=== PATIENT | male | born 1960 | race Caucasian/White ===

== ENCOUNTER 2016-11-13 09:07 | Emergency (ER) | payer OTHER ==
[2016-11-13 10:38] VITALS: BP 124/81
--- NOTE | 2016-11-13 11:41 | UC ---
Laceration HPI - HPI Summary HPI Summary: AT WORK THIS MORNING ABOUT 8:30AM. STRUCK IN THE FACE BY A FILTER WITH A PLASTIC FILTER FRAME. SUSTAINED A LACERATION TO RIGHT SIDE OF NOSE. UTD TETANUS (06/2015). - History Of Current Complaint Chief Complaint: UCLaceration Stated Complaint: NOSE INJURY Time Seen by Provider: 11/13/16 11:20 Hx Obtained From: Patient Laceration Location: Face - NOSE Mechanism Of Injury: Sharp Trauma Onset/Duration: Sudden Onset, Lasting Hours, Still Present Severity: Mild Pain Intensity: 3 Pain Scale Used: 0-10 Numeric Aggravating Factors: Nothing - Allergies/Home Medications Allergies/Adverse Reactions: Allergies Allergy/AdvReac Type Severity Reaction Status Date / Time Atorvastatin [From Lipitor] Allergy Intermediate Muscle Ache Verified 08/29/15 11:30 Niacin [From Niaspan] Allergy Intermediate Muscle Ache Verified 08/29/15 11:30 Rosuvastatin [From Crestor] Allergy BODY CRAMPS Verified 08/29/15 11:30 Home Medications: Home Medications Bupropion HCl [Bupropion HCl Xl] 300 mg PO DAILY 11/13/16 [History Confirmed ] Lisinopril/HCTZ 20/12.5(NF) [Zestoretic 20/12.5(NF)] 1 tab PO DAILY 11/13/16 [ History Confirmed 11/13/16] Pravastatin Sodium [Pravachol] 1 tab PO DAILY 11/13/16 [History Confirmed ] glipiZIDE TAB* [Glucotrol TAB*] 1 tab PO DAILY 11/13/16 [History Confirmed 11/13] PMH/Surg Hx/FS Hx/Imm Hx Endocrine History Of: Reports: Diabetes, Thyroid Disease - HYPO, Hypothyroidism Cardiovascular History Of: Reports: Hypertension Denies: Cardiac Disorders Respiratory History Of: Denies: COPD, Asthma GI/ History Of: Reports: Kidney Stones - X1 - 5-6 YRS AGO Denies: Ulcer Neurological History Of: Reports: Migraine - RECENTLY Psychological History Of: Reports: Anxiety - ON MEDS - Surgical History Surgical History: Yes Surgery Procedure, Year, and Place: acl right knee 2002, nasal surgery 2010. LEFT LEG. L THUMB/TENDON SURGERY. R hand - Family History Known Family History: Positive: Hypertension, Diabetes - Social History Alcohol Use: Rare Alcohol Amount: 1 Q 6 MONTHS Substance Use Type: None Smoking Status (MU): Never Smoked Tobacco Type: Cigars Amount Used/How Often: 2 CIGARS A DAY Length of Time of Smoking/Using Tobacco: 25 YEARS AGO Have You Smoked in the Last Year: No When Did the Patient Quit Smoking/Using Tobacco: 20 YRS AGO - Immunization History Most Recent Influenza Vaccination: season Most Recent Tetanus Shot: Friday July 03, 2015 Review of Systems Constitutional: Negative Skin: Other - LACERATION Respiratory: Negative Cardiovascular: Negative Gastrointestinal: Negative All Other Systems Reviewed And Are Negative: Yes Physical Exam Triage Information Reviewed: Yes Appearance: Well-Appearing, No Pain Distress, Well-Nourished Vital Signs: Initial Vital Signs Temp 97.8 F 11/13/16 10:32 Pulse 59 11/13/16 10:32 Resp 18 11/13/16 10:32 BP 124/81 11/13/16 10:32 Pulse Ox 98 11/13/16 10:32 Vital Signs Reviewed: Yes Eyes: Positive: Conjunctiva Clear ENT: Positive: Hearing grossly normal, Other: - LACERATION RIGHT SIDE OF NOSE. NO TENDERNESS OVER BRIDGE OF NOSE. NO SEPTAL HEMATOMA.. Negative: Nasal congestion, Nasal drainage Neck: Positive: Supple Respiratory: Positive: No respiratory distress, No accessory muscle use Cardiovascular: Positive: Pulses Normal Abdomen Description: Positive: Soft Musculoskeletal: Positive: No Edema Neurological: Positive: Alert Psychological: Positive: Age Appropriate Behavior Skin: Positive: Other - 1CM CURVED LACERATION EXTERNAL RIGHT NOSTRIL. NO INVOLVEMENT OF NASAL MUCOSA. SKIN EDGES WELL APPROXIMATED. Negative: rashes Laceration Repair - Laceration Repair 1 Description: Irregular - C-SHAPED Laceration Size After Repair: Length (cm) - 1 CM, Width (mm) - 0MM, Depth (mm) - 2MM Modified For Repair: No Cleansing Completed Via Routine Prep: Yes Irrigation With Pressure Irrigation Device: Yes Closure Material: Skin Adhesive Laceration Course/Dx - Differential Dx - Laceration/Wound Provider Diagnoses: LACERATION REPAIR RIGHT NOSTRIL Discharge - Discharge Plan Condition: Stable Disposition: HOME Patient Education Materials: Laceration (ED), Skin Adhesive Care (ED) Referrals: Ruiz Almazan MD [Primary Care Provider] - If Needed Additional Instructions: SEEK FOLLOW-UP IF YOU DEVELOP SPREADING REDNESS OF THE SKIN, PURULENT DRAINAGE, FEVER, INCREASED PAIN OR ANY OTHER CONCERNING SYMPTOMS.
== END 2016-11-13 12:09 | disposition home or self-care (01) ==
LOC: UCEAST 09:07
DX: S01.21XA Laceration without foreign body of nose, initial encounter (principal); W22.8XXA Striking against or struck by other objects, initial encounter; Y93.89 Activity, other specified; Y92.89 Other specified places as the place of occurrence of the external cause; Y99.0 Civilian activity done for income or pay; E03.9 Hypothyroidism, unspecified; I10 Essential (primary) hypertension; Z87.442 Personal history of urinary calculi; G43.909 Migraine, unspecified, not intractable, without status migrainosus; F41.9 Anxiety disorder, unspecified; Z88.8 Allergy status to other drugs, medicaments and biological substances; Z87.891 Personal history of nicotine dependence
CPT/HCPCS: 12011; 99211; G0463

== ENCOUNTER 2016-12-02 15:11 | Observation (INO) | payer OTHER ==
[2016-12-02] MEDS ORDERED: NS 0.9% 1000 ML* 1,000 ML IV ONE (16:55)
[2016-12-02] MEDS ORDERED: Aspirin Low Dose CHEW TAB* 81 MG PO ONE (16:55)
--- NOTE | 2016-12-02 17:35 | RAD ---
Indication: Chest pain. 2 views of the chest including dual energy PA views demonstrate no mediastinal shift. Heart is of normal size and configuration. Lung alarcon demonstrate no pleural fluid, pneumonia or pneumothorax. No changes noted since previous exam of August 29, 2015. IMPRESSION: No active cardiopulmonary disease is noted.
[2016-12-02 17:57] LABS: Hematocrit 40 % (42-52); Hemoglobin 14.2 g/dl (14.0-18.0); Mean Corpuscular HGB Conc 36 g/dl (31-36); Mean Corpuscular Hemoglobin 32 pg (27-31); Mean Corpuscular Volume 89 fL (80-94); Mean Platelet Volume 8 um3 (7.4-10.4); Red Blood Count 4.45 10^6/ul (4.0-5.4); Red Cell Distribution Width 13 % (10.5-15); White Blood Count 5.9 10^3/ul (3.5-10.8)
[2016-12-02 18:14] LABS: Albumin 4.3 g/dL (3.2-5.2); BUN/Creatinine Ratio 16.2 (8-20); Calcium 9.4 mg/dL (8.6-10.3); EGFR African American 93.3 (>60); EGFR Non-African American 72.5 (>60); Globulin 2.4 g/dL (2-4); Total Bilirubin 0.3 mg/dL (0.2-1.0); Total Protein 6.7 g/dL (6.4-8.9)
[2016-12-02 18:47] LABS: Magnesium 1.9 mg/dL (1.9-2.7); Potassium 3.9 mmol/L (3.5-5.0)
[2016-12-02] MEDS ORDERED: Ondansetron INJ* 2 MG/ML VIAL IV PRN (20:44)
[2016-12-02] MEDS ORDERED: Acetaminophen TAB* 325 MG PO PRN (20:44)
[2016-12-02] MEDS ORDERED: Dextrose 50% Syringe 50 ML* 25 GM/50 ML SYRINGE IV PUSH PRN (20:47)
[2016-12-02] MEDS ORDERED: traZODone TAB* 50 MG TAB PO SCH (21:00)
--- NOTE | 2016-12-02 22:26 | ED ---
Yonny Leblanc Michael, scribed for JerubjavadiEve MD on 12/02/16 at 1659 . Upper Extremity Pain - HPI Summary HPI Summary: 56 y/o male comes to the ED presenting with sharp arm pain that started at 0500 this morning. The pt reports that the extremity pain occurs intermittently and has not radiated down his LUE. He also c/o left side chest pressure that has alleviated since arriving to the ED. The chest pressure and LUE pain is not aggravated with exertion. He denies SOB, diaphoresis, and acute bilateral LE swelling. The PMHx is significant for HTN, DM, and hypothyroidism. He had a stress test one year ago. The FHx is significant for CVA and CAD. - History of Current Complaint Chief Complaint: EDChestPainROMI Stated Complaint: PAIN IN LT ARM Time Seen by Provider: 12/02/16 16:42 Hx Obtained From: Patient, Medical Records Mechanism Of Injury: Unknown Onset/Duration: Started Hours Ago, Still Present Timing: Intermittent Severity Initially: Moderate Severity Currently: Moderate Pain Location: Arm - LUE Character: Sharp Aggravating Factor(s): Nothing Alleviating Factor(s): Nothing Associated Signs & Symptoms: Positive: Other - CP. LUE pain.. Negative: Swelling - bilateral LE and bilateral LE pain, SOB, Diaphoresis - Allergies/Home Medications Allergies/Adverse Reactions: Allergies Allergy/AdvReac Type Severity Reaction Status Date / Time Atorvastatin [From Lipitor] Allergy Intermediate Muscle Ache Verified 08/29/15 11:30 Niacin [From Niaspan] Allergy Intermediate Muscle Ache Verified 08/29/15 11:30 Rosuvastatin [From Crestor] Allergy BODY CRAMPS Verified 08/29/15 11:30 PMH/Surg Hx/FS Hx/Imm Hx Endocrine/Hematology History: Reports: Hx Diabetes, Hx Thyroid Disease - HYPO Cardiovascular History: Reports: Hx Hypertension Denies: Hx Valvular Heart Disease Comment Only: Other Cardiovascular Problems/Disorders - NEG STRESS TEST Respiratory History: Denies: Hx Asthma, Hx Chronic Obstructive Pulmonary Disease (COPD), Other Respiratory Problems/Disorders GI History: Denies: Hx Ulcer History: Reports: Hx Kidney Stones - X1 - 5-6 YRS AGO Musculoskeletal History: Reports: Hx Arthritis - SPINAL, Hx Tendonitis - RIGHT ELBOW Sensory History: Reports: Hx Contacts or Glasses - GLASSES Denies: Hx Hearing Aid Opthamlomology History: Reports: Hx Contacts or Glasses - GLASSES Neurological History: Reports: Hx Migraine - RECENTLY Denies: Other Neuro Impairments/Disorders Psychiatric History: Reports: Hx Anxiety - ON MEDS - Surgical History Surgery Procedure, Year, and Place: acl right knee 2002, nasal surgery 2010. LEFT LEG. L THUMB/TENDON SURGERY. R hand Hx Anesthesia Reactions: No Infectious Disease History: No Infectious Disease History: Reports: Hx Hepatitis - VIRAL Denies: Hx Clostridium Difficile, Hx Human Immunodeficiency Virus (HIV), Hx of Known/Suspected MRSA, Hx Shingles, Hx Tuberculosis, Hx Known/Suspected VRE, Hx Known/Suspected VRSA, History Other Infectious Disease, Traveled Outside the [place] in Last 30 Days - Family History Known Family History: Positive: Hypertension, Diabetes - Social History Alcohol Use: Rare Alcohol Amount: 1 Q 6 MONTHS Substance Use Type: Reports: None Hx Tobacco Use: No Smoking Status (MU): Never Smoked Tobacco Type: Cigars Amount Used/How Often: 2 CIGARS A DAY Length of Time of Smoking/Using Tobacco: 25 YEARS AGO Have You Smoked in the Last Year: No Review of Systems Negative: Skin Diaphoresis Positive: Chest Pain Negative: Shortness Of Breath Positive: Other - LUE pain. no bilateral LE pain/swelling. All Other Systems Reviewed And Are Negative: Yes Physical Exam Triage Information Reviewed: Yes Vital Signs On Initial Exam: Initial Vitals Temp Pulse Resp BP Pulse Ox 97.9 F 70 20 137/87 99 12/02/16 15:22 12/02/16 15:22 12/02/16 15:22 12/02/16 15:22 12/02/16 15:22 Vital Signs Reviewed: Yes Appearance: Positive: Well-Appearing, No Pain Distress Skin: Positive: Warm, Skin Color Reflects Adequate Perfusion, Dry Head/Face: Positive: Normal Head/Face Inspection Eyes: Positive: EOMI, CK, Conjunctiva Clear ENT: Positive: Hearing grossly normal, TMs normal Neck: Positive: Supple, Nontender Respiratory/Lung Sounds: Positive: Clear to Auscultation, Breath Sounds Present. Negative: Rales, Rhonchi, Wheezes Cardiovascular: Positive: RRR, Pulses are Symmetrical in both Upper and Lower Extremities. Negative: Murmur, Rub Abdomen Description: Positive: Nontender, No Organomegaly, Soft. Negative: Distended, Guarding, Peritoneal Signs Bowel Sounds: Positive: Present Musculoskeletal: Positive: Strength/ROM Intact Neurological: Positive: Sensory/Motor Intact, Alert, Oriented to Person Place, Time, Normal Gait. Negative: Cerebellar Dysfunction Psychiatric: Positive: Affect/Mood Appropriate Diagnostics - Vital Signs Vital Signs Temp Pulse Resp BP Pulse Ox 12/02/16 15:25 98.0 F 68 20 137/87 100 12/02/16 15:22 97.9 F 70 20 137/87 99 - Laboratory Lab Results: Lab Results 12/02/16 12/02/16 12/02/16 Range/Units 17:45 17:45 17:45 WBC 5.9 (3.5-10.8) 10^3/ul RBC 4.45 (4.0-5.4) 10^6/ul Hgb 14.2 (14.0-18.0) g/dl Hct 40 L (42-52) % MCV 89 (80-94) fL MCH 32 H (27-31) pg MCHC 36 (31-36) g/dl RDW 13 (10.5-15) % Plt Count 196 (150-450) 10^3/ul MPV 8 (7.4-10.4) um3 Neut % (Auto) 61.8 (38-83) % Lymph % (Auto) 26.6 (25-47) % [place] % (Auto) 9.1 H (1-9) % Eos % (Auto) 1.6 (0-6) % Baso % (Auto) 0.9 (0-2) % Absolute Neuts (auto) 3.7 (1.5-7.7) 10^3/ul Absolute Lymphs (auto) 1.6 (1.0-4.8) 10^3/ul Absolute Monos (auto) 0.5 (0-0.8) 10^3/ul Absolute Eos (auto) 0.1 (0-0.6) 10^3/ul Absolute Basos (auto) 0.1 (0-0.2) 10^3/ul Absolute Nucleated RBC 0 10^3/ul Nucleated RBC % 0.1 INR (Anticoag Therapy) (0.89-1.11) Sodium 134 (133-145) mmol/L Potassium 3.9 (3.5-5.0) mmol/L Chloride 99 L (101-111) mmol/L Carbon Dioxide 28 (22-32) mmol/L Anion Gap 7 (2-11) mmol/L BUN 17 (6-24) mg/dL Creatinine 1.05 (0.67-1.17) mg/dL Est GFR ( Amer) 93.3 (>60) Est GFR (Non-Af Amer) 72.5 (>60) BUN/Creatinine Ratio 16.2 (8-20) Glucose 161 H (70-100) mg/dL Lactic Acid 0.8 (0.5-2.0) mmol/L Calcium 9.4 (8.6-10.3) mg/dL Magnesium 1.9 (1.9-2.7) mg/dL Total Bilirubin 0.30 (0.2-1.0) mg/dL AST 20 (13-39) U/L ALT 22 (7-52) U/L Alkaline Phosphatase 48 (34-104) U/L Total Creatine Kinase 131 (10-223) U/L CK-MB (CK-2) 2.1 (0.6-6.3) ng/mL Troponin I 0.00 (<0.04) ng/mL Total Protein 6.7 (6.4-8.9) g/dL Albumin 4.3 (3.2-5.2) g/dL Globulin 2.4 (2-4) g/dL Albumin/Globulin Ratio 1.8 (1-3) // Range/Units 17:45 WBC (3.5-10.8) 10^3/ul RBC (4.0-5.4) 10^6/ul Hgb (14.0-18.0) g/dl Hct (42-52) % MCV (80-94) fL MCH (27-31) pg MCHC (31-36) g/dl RDW (10.5-15) % Plt Count (150-450) 10^3/ul MPV (7.4-10.4) um3 Neut % (Auto) (38-83) % Lymph % (Auto) (25-47) % [place] % (Auto) (1-9) % Eos % (Auto) (0-6) % Baso % (Auto) (0-2) % Absolute Neuts (auto) (1.5-7.7) 10^3/ul Absolute Lymphs (auto) (1.0-4.8) 10^3/ul Absolute Monos (auto) (0-0.8) 10^3/ul Absolute Eos (auto) (0-0.6) 10^3/ul Absolute Basos (auto) (0-0.2) 10^3/ul Absolute Nucleated RBC 10^3/ul Nucleated RBC % INR (Anticoag Therapy) 0.86 L (0.89-1.11) Sodium (133-145) mmol/L Potassium (3.5-5.0) mmol/L Chloride (101-111) mmol/L Carbon Dioxide (22-32) mmol/L Anion Gap (2-11) mmol/L BUN (6-24) mg/dL Creatinine (0.67-1.17) mg/dL Est GFR ( Amer) (>60) Est GFR (Non-Af Amer) (>60) BUN/Creatinine Ratio (8-20) Glucose (70-100) mg/dL Lactic Acid (0.5-2.0) mmol/L Calcium (8.6-10.3) mg/dL Magnesium (1.9-2.7) mg/dL Total Bilirubin (0.2-1.0) mg/dL AST (13-39) U/L ALT (7-52) U/L Alkaline Phosphatase (34-104) U/L Total Creatine Kinase (10-223) U/L CK-MB (CK-2) (0.6-6.3) ng/mL Troponin I (<0.04) ng/mL Total Protein (6.4-8.9) g/dL Albumin (3.2-5.2) g/dL Globulin (2-4) g/dL Albumin/Globulin Ratio (1-3) Result Diagrams: 12/02/16 17:45 12/02/16 17:45 Lab Statement: Any lab studies that have been ordered have been reviewed, and results considered in the medical decision making process. - Radiology CXR Xray Interpretation: No Acute Changes Radiology Interpretation Completed By: Radiologist - EKG EKG 1533 EKG Rhythm: Sinus Rhythm - 61 EKG Interpretation: non specific Twave changes AVF and T wave inversion lead 3 Course/Dx - Course Course Of Treatment: Discussed patient care with Dr. Palomo (Hospitalist) at 2009 who will accept the patient as and admission. - Diagnoses Provider Diagnoses: Chest pain Discharge - Discharge Plan Condition: Stable Disposition: ADMITTED TO [facility] Discharge Disposition Comment: patient is accepted as an admission by Dr. Palomo The documentation as recorded by the radhaibYonny matthew Michael accurately reflects the service I personally performed and the decisions made by , Eve Rod MD.
[2016-12-02] MEDS: Heparin VIAL(*) 5000 UNITS/ML VIAL (FIVE THOUSAND) SUBCUT SCH (22:36)
--- NOTE | 2016-12-02 22:50 | HP ---
HISTORY AND PHYSICAL: DATE OF ADMISSION: 12/02/16 PRIMARY CARE PROVIDER: Dr. Almazan. ATTENDING PHYSICIAN WHILE IN THE HOSPITAL: Kole Palomo MD *(report dictated by Cora Jones NP). CHIEF COMPLAINT: 1. Left arm pain. 2. Chest pain. HISTORY OF PRESENTING ILLNESS: Mr. Resendez is a 56-year-old male patient who carries a history of hypertension, hyperlipidemia, hypothyroidism, depression and diabetes. He comes into the ER today stating that this morning he noticed that he was having episodes of sharp episodic pain in the left arm, described as a sharp stabbing pain. It did not radiate down the arm, did not come from the neck or shoulder area. He says the pain would come and go and there was no association with exertion. He had no associated symptoms of shortness of breath and nausea. He did not feel like he was having chills. He states the pain lasted seconds and he would have 14 to 15 episodes at a time in the left arm. He was concerned because his family members have significant medical history for heart attack, particularly his brother at young ages. He says that while he was in the waiting room here today, he did have an episode of chest discomfort and chest pain, but again no heaviness and it lasted for seconds, went away. He has not had any exertional chest pain to speak of. He denies having any chills. He denies having any fevers. He states he has not been having any nausea or vomiting, denies having any shortness of breath. He says he came in, he was evaluated. He says he was symptom free now, but there was concern on the ER's part that because of his medical history, his risk factors, we were asked to evaluate for admission. He denies any recent illness, denies having any leg pain, calf pain or any tenderness or swelling of the lower extremities. PAST MEDICAL HISTORY: Significant for: 1. Hypertension. 2. Hyperlipidemia. 3. Hypothyroidism. 4. Depression. 5. Diabetes. PAST SURGICAL HISTORY: 1. He has had right knee surgery ACL repair. 2. Carpal tunnel. 3. Deviated septum repair. 4. ORIF left lower extremity. 5. Left thumb repair. HOME MEDICATIONS: According to the list that he gave does include: 1. Trazodone 50 mg p.o. at bedtime. 2. Glipizide 1 tablet at bedtime. 3. Zoloft 50 mg daily. 4. Pravachol 1 tablet daily. 5. Lisinopril/hydrochlorothiazide 1 tablet p.o. daily. 6. Synthroid 75 mcg daily. 7. Bupropion 300 mg p.o. daily. 8. Aspirin 81 mg daily. ALLERGIES TO MEDICATIONS: Include LIPITOR, NIACIN, CRESTOR. FAMILY HISTORY: His mother had a history of CVA. Father had a history of ID __ ____ but he had 2 brothers with heart attacks at young ages. SOCIAL HISTORY: He does not smoke. He does not drink; if he does, it is very rarely. Lives with his . Surrogate decision maker is his . REVIEW OF SYSTEMS: There is no documented fever. He denied having any significant weight change. There was no double vision, no ear discharge. He denies having any rhinorrhea. No sore throat. No thyroid enlargement. There was chest pain per my HPI. There was no shortness of breath, no orthopnea, no nocturnal dyspnea. There was no abdominal pain, no nausea, no vomiting. No dysuria, no frequency. No seizure, no loss of consciousness, no pruritus, and no skin ulcerations. Review of 14 systems including all others negative. PHYSICAL EXAMINATION GENERAL: At this time, Mr. Resendez is a 56-year-old male patient. He appears to be well nourished, well developed. He is sitting in the ER stretcher. VITAL SIGNS: Blood pressure 138/75, pulse 66, respirations 18, O2 sat 95%, temperature 98.3. HEENT: Head is atraumatic and normocephalic. Eyes: EOMs are intact. Sclerae anicteric and not pale. Throat: Oral mucosa appears to be moist. No oropharyngeal erythema. NECK: Supple. LUNGS: Clear to auscultation bilaterally. No wheezes, rales or rhonchi. HEART: Heart sounds S1, S2. Regular rate and rhythm. No murmurs, rubs or gallops. ABDOMEN: Soft, flat, nontender. Bowel sounds present. EXTREMITIES: Pulses were 2+ throughout. He is able to move all 4 extremities. 5/5 strength. No peripheral edema. NEUROLOGIC: The patient is awake, he is alert. He is oriented x3. Tongue is midline. Compressed Gases Tester are equal. He had no gross focal deficits. SKIN: Grossly intact. DIAGNOSTIC STUDIES/LAB DATA: Labs today revealed WBC of 5.9, RBC of 4.45, hemoglobin of 14.2, hematocrit of 40, and platelet count of 196. INR 0.86. Sodium was 134, potassium was 3.9, chloride 99, bicarb 28, BUN 17, creatinine 1.05, glucose 161, lactate 0.8, calcium 9.4, magnesium 1.9, total bilirubin 0.3. AST 20, ALT 22, alk phos 48, CK 131, CK-MB 2.1. Troponin 0. Albumin of 4.3. He had a chest x-ray, showed no active cardiopulmonary disease. EKG shows a normal sinus rhythm, rate of 61, no ST elevations or T-wave inversions were noted. Old medical records were reviewed. ASSESSMENT AND PLAN: Mr. Resendez is a 56-year-old male patient coming into the ER today with complaints of chest discomfort and arm pain. He will be admitted under observation status for: 1. Chest pain and arm pain. Again, symptoms are atypical for acute coronary syndrome, although he has significant risk factors, so I think it is warranted to keep him overnight for serial troponins, check stress test in the morning. I placed him on telemetry. He is already on aspirin and statin, continue. Should the stress test be positive or troponins go up, we will get a cardiology consult. 2. Hypertension. Continue meds as prescribed. 3. Hyperlipidemia. Check lipid panel in the morning and we will go ahead and continue statin. 4. Hypothyroidism. Continue Synthroid. 5. Depression. Continue supportive care. 6. Diabetes. Continue with lispro sliding scale. 7. DVT prophylaxis. He will be placed on heparin subcu. 8. Code status. Full code. 9. Fluid, electrolytes, and nutrition. He can have a heart healthy diet and n.p.o. after midnight. TIME SPENT: Time spent on this admission was 60 minutes, greater than half that time was spent [id number] with the patient, obtaining my history of physical; the other half time was spent going over the plan of care with the patient and implementing plan of care. I did discuss the plan of care with my attending, Dr. Palomo; he is in agreement. CORA JONES NP CC: Dr. Almazan * [id number]/[facility] #: [id number] AMANDEEP
[2016-12-03 05:48] LABS: Hematocrit 39 % (42-52); Hemoglobin 13.5 g/dl (14.0-18.0); Mean Corpuscular HGB Conc 35 g/dl (31-36); Mean Corpuscular Hemoglobin 31 pg (27-31); Mean Corpuscular Volume 89 fL (80-94); Mean Platelet Volume 8 um3 (7.4-10.4); Red Blood Count 4.36 10^6/ul (4.0-5.4); Red Cell Distribution Width 13 % (10.5-15); White Blood Count 5.5 10^3/ul (3.5-10.8)
[2016-12-03 05:59] LABS: BUN/Creatinine Ratio 13.7 (8-20); Calcium 8.3 mg/dL (8.6-10.3); EGFR African American 96.5 (>60); HDL Cholesterol 39.2 mg/dL; Potassium 3.9 mmol/L (3.5-5.0)
[2016-12-03] MEDS ORDERED: Levothyroxine TAB* 75 MCG TAB PO SCH (06:00)
[2016-12-03] MEDS: Heparin VIAL(*) 5000 UNITS/ML VIAL (FIVE THOUSAND) SUBCUT SCH (06:08)
[2016-12-03] MEDS ORDERED: Insulin LISPRO* 1 UNITS UNIT SUBCUT SCH (07:30)
[2016-12-03] MEDS ORDERED: BuPROPion XL* 150 MG TAB.XL PO SCH (09:00)
[2016-12-03] MEDS ORDERED: Aspirin Low Dose CHEW TAB* 81 MG PO SCH (09:00)
[2016-12-03] MEDS ORDERED: Hydrochlorothiazide TAB* 25 MG PO SCH (09:00)
[2016-12-03] MEDS ORDERED: Lisinopril TAB* 10 MG PO SCH (09:00)
[2016-12-03] MEDS ORDERED: Sertraline* 50 MG TAB PO SCH (09:00)
[2016-12-03] MEDS ORDERED: Aspirin EC Low Dose* 81 MG TAB.EC PO SCH (09:00)
[2016-12-03] MEDS ORDERED: CMCS Pravastatin (NF) 20 MG TAB PO SCH (09:00)
--- NOTE | 2016-12-03 11:16 | RAD ---
Edited for charges. INDICATION: Chest pain, multiple risk factors for coronary artery disease including diabetes, hypertension, elevated cholesterol, tobacco use, family history of heart disease. COMPARISON: No relevant prior exams available on the [facility] [place] for comparison. TECHNIQUE: 10.330 mCi of Tc-99m Myoview were administered IV. SPECT images of the heart were obtained. Later on the same day under the direction of Dr. Ochoa, an exercise stress test was performed. The patient achieved a peak heart rate of 145 bpm, 90 % of the age- predicted maximum. Subsequently, the patient was given an IV injection of 25.600 mCi Tc- 99m Myoview. SPECT images of the heart were obtained and a gated wall motion study was performed. FINDINGS: Gated wall motion images were obtained at stress and demonstrate wall motion to be within normal limits. The calculated left ventricular ejection fraction is 57 % at stress. Estimated LEFT ventricular end diastolic volume is 85 mL. TID 0.88. Based on review of the attenuation corrected and non corrected images the distribution of radiopharmaceutical within the myocardium on the stress and rest images is within normal limits. No fixed or reversible regions of hypoperfusion evident. IMPRESSION: 1. No evidence for stress induced myocardial ischemia or presence of an infarct. 2. Normal left ventricular wall motion and ejection fraction. ASSESSMENT: LOW RISK. Based on imaging criteria from ACC/AHA 2002 Guideline Update for the Management of Patients With Chronic Stable Angina Table 23. Noninvasive Risk Stratification. MTDD
--- NOTE | 2016-12-03 12:14 | DCNOTE ---
Subjective Date of Service: 12/03/16 Interval History: Still has 10-15 second episodes of L upper arm pain, no radiation to shoulder or elsewhere. No new c/o. Objective Active Medications: Acetaminophen (Tylenol Tab*) 650 mg PO Q4H PRN PRN Reason: FEVER/PAIN Aspirin (Aspirin Ec Low Dose*) 81 mg PO DAILY [facility] Last Admin: 12/03/16 11:40 Dose: 81 mg Bupropion HCl (Wellbutrin Xl *) 300 mg PO DAILY [facility] PRN Reason: Protocol Last Admin: 12/03/16 11:40 Dose: 300 mg Dextrose (D50w Syringe 50 Ml*) 12.5 gm IV PUSH .FOR FS < 60 - SS PRN PRN Reason: FS < 60 Heparin Sodium (Porcine) (Heparin Vial(*)) 5,000 units SUBCUT Q8HR [facility] Last Admin: 12/03/16 06:08 Dose: 5,000 units Hydrochlorothiazide (Hydrodiuril Tab*) 12.5 mg PO DAILY [facility] Last Admin: 12/03/16 11:39 Dose: 12.5 mg Insulin Human Lispro (Humalog*) 0 units SUBCUT AC [facility] PRN Reason: Protocol Last Admin: 12/03/16 06:12 Dose: Not Given Levothyroxine Sodium (Synthroid Tab*) 75 mcg PO 0600 [facility] Last Admin: 12/03/16 06:06 Dose: 75 mcg Lisinopril (Prinivil Tab*) 20 mg PO DAILY [facility] Last Admin: 12/03/16 11:40 Dose: 20 mg Ondansetron HCl (Zofran Inj*) 4 mg IV Q6H PRN PRN Reason: NAUSEA Pravastatin Sodium (Pravachol (Nf)) 40 mg PO DAILY [facility] PRN Reason: Protocol Last Admin: 12/03/16 11:40 Dose: 40 mg Sertraline HCl (Zoloft*) 50 mg PO DAILY [facility] Last Admin: 12/03/16 11:39 Dose: 50 mg Trazodone HCl (Desyrel Tab*) 50 mg PO BEDTIME [facility] Last Admin: 12/02/16 22:35 Dose: 50 mg Vital Signs 12/02/16 12/02/16 12/02/16 21:00 21:23 21:24 Temperature 97.5 F Pulse Rate 75 59 56 Respiratory 20 18 16 Rate Blood Pressure 136/78 139/83 (mmHg) O2 Sat by Pulse 97 96 100 Oximetry 12/02/16 12/02/16 12/03/16 21:49 23:52 04:19 Temperature 97.5 F 97.5 F 98.5 F Pulse Rate 56 56 56 Respiratory 16 16 16 Rate Blood Pressure 139/83 125/77 125/84 (mmHg) O2 Sat by Pulse 100 98 97 Oximetry 12/03/16 12/03/16 07:17 08:30 Temperature 98.5 F Pulse Rate 51 Respiratory 16 Rate Blood Pressure 122/75 (mmHg) O2 Sat by Pulse 98 98 Oximetry Oxygen Devices in Use Now: None Appearance: Alert, partly up in bed. In good spirits. Looks comfortable. Neck: NL Appearance and Movements; NL JVP, No Thyroid Enlargement, Masses Respiratory: Symmetrical Chest Expansion and Respiratory Effort, Clear to Auscultation, Clear to Percussion Cardiovascular: NL Sounds; No Murmurs; No JVD, RRR, No Edema, - Extremities: No Edema, No Clubbing, Cyanosis, - Skin: No Rash or Ulcers, No Nodules or Sclerosis, - Neurological: Alert and Oriented x 3, NL Sensation Result Diagrams: 12/03/16 05:24 12/03/16 05:24 Additional Lab and Data: Lab Results 12/02/16 12/02/16 12/02/16 Range/Units 17:45 17:45 17:45 WBC 5.9 (3.5-10.8) 10^3/ul RBC 4.45 (4.0-5.4) 10^6/ul Hgb 14.2 (14.0-18.0) g/dl Hct 40 L (42-52) % MCV 89 (80-94) fL MCH 32 H (27-31) pg MCHC 36 (31-36) g/dl RDW 13 (10.5-15) % Plt Count 196 (150-450) 10^3/ul MPV 8 (7.4-10.4) um3 Neut % (Auto) 61.8 (38-83) % Lymph % (Auto) 26.6 (25-47) % [place] % (Auto) 9.1 H (1-9) % Eos % (Auto) 1.6 (0-6) % Baso % (Auto) 0.9 (0-2) % Absolute Neuts (auto) 3.7 (1.5-7.7) 10^3/ul Absolute Lymphs (auto) 1.6 (1.0-4.8) 10^3/ul Absolute Monos (auto) 0.5 (0-0.8) 10^3/ul Absolute Eos (auto) 0.1 (0-0.6) 10^3/ul Absolute Basos (auto) 0.1 (0-0.2) 10^3/ul Absolute Nucleated RBC 0 10^3/ul Nucleated RBC % 0.1 INR (Anticoag Therapy) (0.89-1.11) Sodium 134 (133-145) mmol/L Potassium 3.9 (3.5-5.0) mmol/L Chloride 99 L (101-111) mmol/L Carbon Dioxide 28 (22-32) mmol/L Anion Gap 7 (2-11) mmol/L BUN 17 (6-24) mg/dL Creatinine 1.05 (0.67-1.17) mg/dL Est GFR ( Amer) 93.3 (>60) Est GFR (Non-Af Amer) 72.5 (>60) BUN/Creatinine Ratio 16.2 (8-20) Glucose 161 H (70-100) mg/dL Lactic Acid 0.8 (0.5-2.0) mmol/L Calcium 9.4 (8.6-10.3) mg/dL Magnesium 1.9 (1.9-2.7) mg/dL Total Bilirubin 0.30 (0.2-1.0) mg/dL AST 20 (13-39) U/L ALT 22 (7-52) U/L Alkaline Phosphatase 48 (34-104) U/L Total Creatine Kinase 131 (10-223) U/L CK-MB (CK-2) 2.1 (0.6-6.3) ng/mL Troponin I 0.00 (<0.04) ng/mL Total Protein 6.7 (6.4-8.9) g/dL Albumin 4.3 (3.2-5.2) g/dL Globulin 2.4 (2-4) g/dL Albumin/Globulin Ratio 1.8 (1-3) // Range/Units 17:45 WBC (3.5-10.8) 10^3/ul RBC (4.0-5.4) 10^6/ul Hgb (14.0-18.0) g/dl Hct (42-52) % MCV (80-94) fL MCH (27-31) pg MCHC (31-36) g/dl RDW (10.5-15) % Plt Count (150-450) 10^3/ul MPV (7.4-10.4) um3 Neut % (Auto) (38-83) % Lymph % (Auto) (25-47) % [place] % (Auto) (1-9) % Eos % (Auto) (0-6) % Baso % (Auto) (0-2) % Absolute Neuts (auto) (1.5-7.7) 10^3/ul Absolute Lymphs (auto) (1.0-4.8) 10^3/ul Absolute Monos (auto) (0-0.8) 10^3/ul Absolute Eos (auto) (0-0.6) 10^3/ul Absolute Basos (auto) (0-0.2) 10^3/ul Absolute Nucleated RBC 10^3/ul Nucleated RBC % INR (Anticoag Therapy) 0.86 L (0.89-1.11) Sodium (133-145) mmol/L Potassium (3.5-5.0) mmol/L Chloride (101-111) mmol/L Carbon Dioxide (22-32) mmol/L Anion Gap (2-11) mmol/L BUN (6-24) mg/dL Creatinine (0.67-1.17) mg/dL Est GFR ( Amer) (>60) Est GFR (Non-Af Amer) (>60) BUN/Creatinine Ratio (8-20) Glucose (70-100) mg/dL Lactic Acid (0.5-2.0) mmol/L Calcium (8.6-10.3) mg/dL Magnesium (1.9-2.7) mg/dL Total Bilirubin (0.2-1.0) mg/dL AST (13-39) U/L ALT (7-52) U/L Alkaline Phosphatase (34-104) U/L Total Creatine Kinase (10-223) U/L CK-MB (CK-2) (0.6-6.3) ng/mL Troponin I (<0.04) ng/mL Total Protein (6.4-8.9) g/dL Albumin (3.2-5.2) g/dL Globulin (2-4) g/dL Albumin/Globulin Ratio (1-3) Assess/Plan/Problems-Billing Assessment: - Patient Problems (1) Arm pain Current Visit: Yes Status: Acute Comment: Pain not at all like angina. Stress test negative. Likely musculoskeletal, suspect injury at work although patient does not recall any unusual exertion or event. Pt concerned due to his strong family hx of heart disease. He states his niece, 35 years old, recently had sudden , cause not yet known. (2) Diabetes Current Visit: Yes Status: Acute Code(s): E11.9 - TYPE 2 DIABETES MELLITUS WITHOUT COMPLICATIONS SNOMED Code(s): 34951805 Comment: Continue home dose glipizide, statin, ASA. (3) HTN (hypertension) Current Visit: Yes Status: Acute Code(s): I10 - ESSENTIAL (PRIMARY) HYPERTENSION SNOMED Code(s): 96573473 Comment: Continue home lisinopril/thiazide combo. (4) Depression Current Visit: Yes Status: Acute Code(s): F32.9 - MAJOR DEPRESSIVE DISORDER , SINGLE EPISODE, UNSPECIFIED SNOMED Code(s): 50770023 Comment: Continue buproprion, trazadone, sertraline. Status and Disposition: Discharge now. Fup Dr. Almazan.
[2016-12-03 12:37] VITALS: BP 117/78
--- NOTE | 2016-12-03 22:35 | DS ---
CC: Dr. Almazan DISCHARGE SUMMARY: DATE OF ADMISSION: 12/02/16 DATE OF DISCHARGE: 12/03/16 HOSPITAL COURSE: This 56-year-old male presented with left arm pain, it started at 5 in the morning when he was in bed. He had episodes of 10 to 15 seconds of a sharp pain, it was very localized, di d not radiate to his shoulder even. There were no other associated symptoms. He had episodes throu ghout the day. He continues to have some in the hospital even on the morning of discharge. I note the patient is concerned as he pointed out to me that he has a strong family history of heart disease and also recently his niece had sudden , she was only 35 years old, the cause is not y et known. The patient was admitted to the telemetry unit. He had 3 troponin levels, all of which were within normal limits. He underwent a nuclear stress test, there was no evidence of ischemia or infarction. There was normal left ventricular wall motion and ejection fraction. My clinical impression is that the patient has musculoskeletal pain, it may well have happened at wo rk as he often does heavy exertion at work, although he cannot recall any unusual activity or specif ic event that may have caused this. It may have been something that was not that notable at the [facility]. FINAL DIAGNOSES: 1. Left arm pain. 2. Diabetes. 3. Hypertension. 4. Hyperthyroidism. DISCHARGE MEDICATIONS: 1. Aspirin 81 mg daily. 2. Trazodone 100 mg h.s. 3. Sertraline 50 mg daily. 4. Levothyroxine 75 mcg daily. 5. Pravastatin 1 tablet daily. 6. Lisinopril and hydrochlorothiazide 20/12.5 mg 1 daily. 7. Bupropion 300 mg daily. 8. Glipizide 1 tablet daily. [id number]/[facility] #: [id number]
== END 2016-12-03 12:38 | disposition home or self-care (01) ==
LOC: ED 15:11 → MEDTELE 20:42
PROVIDERS: ADMIT Hospitalist; ATTEND Internal Medicine
DX: M79.602 Pain in left arm (principal); R07.9 Chest pain, unspecified; E11.9 Type 2 diabetes mellitus without complications; I10 Essential (primary) hypertension; E03.9 Hypothyroidism, unspecified; Z79.84 Long term (current) use of oral hypoglycemic drugs; Z79.82 Long term (current) use of aspirin; Z79.899 Other long term (current) drug therapy; Z88.8 Allergy status to other drugs, medicaments and biological substances; R00.1 Bradycardia, unspecified
CPT/HCPCS: 36415; 71020; 78452; 80048; 80053; 80061; 82550; 82553; 83036; 83605; 83735; 84484; 85025; 85610; 93005; 93017; 94760; 96372; 99283; A9270-GY; A9502; G0378; J1644

== ENCOUNTER 2017-01-15 17:25 | Emergency (ER) | payer OTHER ==
[2017-01-15 17:46] VITALS: BP 124/76
--- NOTE | 2017-01-15 17:59 | UC ---
Respiratory Complaint HPI - HPI Summary HPI Summary: The patient comes in today for: 1. Pain in the eyes, nasal congestion: Onset: 6 days. Palliative/provocative: Nothing makes the symptoms better or worse. Quality: Pressure. Region: Frontal and maxillary Severity: 6/10 Time: Constant. Associated symptoms: Fever: None Rhinitis: yellow material. Cough: Occasional. Previous treatment: Zyrtec did not help. * - History of Current Complaint Chief Complaint: UCGeneralIllness Stated Complaint: SINUS Time Seen by Provider: 01/15/17 17:52 Hx Obtained From: Patient - Allergies/Home Medications Allergies/Adverse Reactions: Allergies Allergy/AdvReac Type Severity Reaction Status Date / Time Atorvastatin [From Lipitor] Allergy Intermediate Muscle Ache Verified 01/15/17 17:37 Niacin [From Niaspan] Allergy Intermediate Muscle Ache Verified 01/15/17 17:37 Rosuvastatin [From Crestor] Allergy BODY CRAMPS Verified 01/15/17 17:37 PMH/Surg Hx/FS Hx/Imm Hx Previously Healthy: No Endocrine History: Diabetes, Thyroid Disease, Hypothyroidism, Dyslipidemia Cardiovascular History: Hypertension Psychological History: Anxiety, Depression - Surgical History Surgical History: Yes Surgery Procedure, Year, and Place: acl right knee 2002, nasal surgery 2010. LEFT LEG. L THUMB/TENDON SURGERY. R hand - Family History Known Family History: Positive: Hypertension, Diabetes - Social History Occupation: Employed Full-time Alcohol Use: Rare Alcohol Amount: 1 Q 6 MONTHS Substance Use Type: None Smoking Status (MU): Former Smoker Type: Cigars Amount Used/How Often: 2 CIGARS A DAY Length of Time of Smoking/Using Tobacco: 25 YEARS AGO Have You Smoked in the Last Year: No When Did the Patient Quit Smoking/Using Tobacco: 20 YRS AGO - Immunization History Most Recent Influenza Vaccination: season Most Recent Tetanus Shot: Friday July 03, 2015 Review of Systems Constitutional: Negative Skin: Negative Eyes: Negative ENT: Nasal Discharge Respiratory: Negative Cardiovascular: Negative Gastrointestinal: Negative Genitourinary: Negative All Other Systems Reviewed And Are Negative: Yes Physical Exam Triage Information Reviewed: Yes Appearance: Well-Appearing, No Pain Distress, Well-Nourished Vital Signs: Initial Vital Signs Temp 98.1 F 01/15/17 17:33 Pulse 54 01/15/17 17:33 Resp 16 01/15/17 17:33 BP 124/76 01/15/17 17:33 Pulse Ox 97 01/15/17 17:33 Vital Signs Reviewed: Yes Eyes: Positive: Conjunctiva Clear. Negative: Discharge ENT: Positive: Hearing grossly normal, Other: - Some frontal/maxillary sinus pressure.. Negative: Pharyngeal erythema, Nasal congestion, Nasal drainage, TM bulging, TM dull, TM red, Tonsillar swelling, Tonsillar exudate Dental: Negative: Gross Decay/Caries @, Dental Fracture @ Neck: Positive: Supple, Nontender, No Lymphadenopathy Respiratory: Positive: Lungs clear, No respiratory distress, No accessory muscle use. Negative: Crackles, Wheezing Cardiovascular: Positive: RRR, No Murmur Abdomen Description: Positive: Nontender, No Organomegaly, Soft. Negative: Distended, Guarding Musculoskeletal: Positive: Strength Intact, ROM Intact, No Edema Neurological: Positive: Alert, Muscle Tone Normal Psychological: Positive: Age Appropriate Behavior, Consolable Skin: Negative: rashes, breakdown UC Diagnostic Evaluation - Laboratory O2 Sat by Pulse Oximetry: 97 Respiratory Course/Dx - Course Course Of Treatment: Patient was told that he has sinusitis and his treatment options. - Differential Dx/Diagnosis Provider Diagnoses: Sinusitis Discharge - Discharge Plan Condition: Stable Disposition: HOME Patient Education Materials: Sinusitis (ED) Referrals: Ruiz Almazan MD [Primary Care Provider] - 1 Week (Please see your primary care provider in about one to two weeks to see how well you are doing. If you get worse, please be seen sooner.)
== END 2017-01-15 18:07 | disposition home or self-care (01) ==
LOC: UCCORT 17:25
DX: J32.9 Chronic sinusitis, unspecified (principal); Z87.891 Personal history of nicotine dependence; E11.9 Type 2 diabetes mellitus without complications; E03.9 Hypothyroidism, unspecified; E78.5 Hyperlipidemia, unspecified; I10 Essential (primary) hypertension
CPT/HCPCS: 99212; G0463

== ENCOUNTER 2017-02-16 14:33 | Emergency (ER) | payer OTHER ==
[2017-02-16 15:35] VITALS: BP 125/75
--- NOTE | 2017-02-16 15:51 | UC ---
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 Over the past 2 days has increasing erythema and tenderness int he left forearm. No fever. type 2 diabetes, does not monitor his blood sugars. - History of Current Complaint Chief Complaint: UCSkin Time Seen by Provider: 02/16/17 15:49 Stated Complaint: INSECT BITE LFT ARM-POSS INFECTION Hx Obtained From: Patient Onset/Duration: Gradual Onset, Lasting Weeks - 2, Worse Since - past 2 days Skin Exposure Onset/Duration: Weeks Ago Timing: Constant Onset Severity: Mild Current Severity: Moderate Location: Discrete - left forearm Aggravating: Touch Alleviating: Nothing Associated Signs & Symptoms: Positive: Tenderness, Red Streaks - onset of streak left medial forearm almost reaching to elbow. Related History: Insect Bite/Sting - Allergy/Home Medications Allergies/Adverse Reactions: Allergies Allergy/AdvReac Type Severity Reaction Status Date / Time Atorvastatin [From Lipitor] Allergy Intermediate Muscle Ache Verified 02/16/17 15:29 Niacin [From Niaspan] Allergy Intermediate Muscle Ache Verified 02/16/17 15:29 Rosuvastatin [From Crestor] Allergy BODY CRAMPS Verified 02/16/17 15:29 Review of Systems Constitutional: Negative, Other - diabetes control is ok, last a1c was 7.7%. Skin: Rash - progressive erythema and tenderness around area of bite All Other Systems Reviewed And Are Negative: Yes PMH/Surg Hx/FS Hx/Imm Hx Endocrine History: Diabetes, Dyslipidemia Cardiovascular History: Hypertension - Surgical History Surgical History: Yes Surgery Procedure, Year, and Place: acl right knee 2002, nasal surgery 2010. LEFT LEG surgery, L THUMB/TENDON SURGERY,. R hand surgery - Family History Known Family History: Positive: Hypertension, Diabetes - Social History Occupation: Employed Full-time - [place] Alcohol Use: Rare Alcohol Amount: 1 Q 6 MONTHS Substance Use Type: None Smoking Status (MU): Former Smoker Type: Cigars Amount Used/How Often: 2 CIGARS A DAY Length of Time of Smoking/Using Tobacco: 25 YEARS AGO Have You Smoked in the Last Year: No When Did the Patient Quit Smoking/Using Tobacco: 20 YRS AGO - Immunization History Most Recent Influenza Vaccination: 2015/2016 season Most Recent Tetanus Shot: Friday July 03, 2015 Physical Exam Triage Information Reviewed: Yes Appearance: Well-Appearing, Pain Distress - mild Vital Signs: Initial Vital Signs Temp 97.2 F 02/16/17 15:30 Pulse 51 02/16/17 15:30 Resp 16 02/16/17 15:30 BP 125/75 02/16/17 15:30 Pulse Ox 97 02/16/17 15:30 ENT: Positive: Pharynx normal Neck: Positive: Supple, Nontender, No Lymphadenopathy, Other: - Left axilla without tenderness or adenopathy. Respiratory: Positive: Lungs clear, Normal breath sounds Cardiovascular: Positive: RRR, No Murmur Neurological Exam: Normal Neurological: Positive: Alert, Muscle Tone Normal Skin Exam: Other - left forearm with small 1 mm crust with 1.5cm area of induration without fluctuance or pointing surrounding it. 7 x 6 cm area of erythema, mildly tender. Lymphangitic streak extends about 8 cm to several cm inferior to the medial epicondyle Course/Dx - Course Course Of Treatment: cephalexin for cellulitis treatment. - Differential Diagnoses - Skin Complaint Differential Diagnoses: Cellulitis - Diagnoses Provider Diagnoses: cellulitis left forearm. Discharge - Discharge Plan Condition: Stable Disposition: HOME Prescriptions: Cephalexin CAP* [Keflex 500 CAP*] 500 mg PO QID #28 cap Patient Education Materials: Cellulitis (ED) Additional Instructions: You should see improvement in the streaking, pain and redness within 48 hours. Hot compress the area for 5 to 10 minutes at least twice daily. If you develop fever or redness extending above the elbow, please return for re- evaluation.
== END 2017-02-16 16:18 | disposition home or self-care (01) ==
LOC: UCCORT 14:33
DX: S50.862S Insect bite (nonvenomous) of left forearm, sequela (principal); L03.114 Cellulitis of left upper limb; W57.XXXS Bitten or stung by nonvenomous insect and other nonvenomous arthropods, sequela; E11.9 Type 2 diabetes mellitus without complications; E78.5 Hyperlipidemia, unspecified; I10 Essential (primary) hypertension; Z87.891 Personal history of nicotine dependence
CPT/HCPCS: 99212; G0463

== ENCOUNTER 2017-07-08 10:19 | Emergency (ER) | payer OTHER ==
[2017-07-08 12:19] VITALS: BP 133/83
--- NOTE | 2017-07-08 12:29 | UC ---
General HPI - HPI Summary HPI Summary: 56 yo gentleman c/o approx 3 days cough, cold sx. Now c/o sinus pressure and dark nasal mucus. + cough. No sob, no rash, no palpitations. No rash. No GI issues. + tired. Works at a [employer], as such unk sick contacts. Hx sinusitis last year. - History of Current Complaint Chief Complaint: UCRespiratory Stated Complaint: SINUSES,DIXON Time Seen by Provider: 07/08/17 12:02 Hx Obtained From: Patient - Allergy/Home Medications Allergies/Adverse Reactions: Allergies Allergy/AdvReac Type Severity Reaction Status Date / Time Atorvastatin [From Lipitor] Allergy Intermediate Muscle Ache Verified 07/08/17 12:08 Niacin [From Niaspan] Allergy Intermediate Muscle Ache Verified 07/08/17 12:08 Rosuvastatin [From Crestor] Allergy BODY CRAMPS Verified 07/08/17 12:08 Home Medications: Home Medications Otc Cold And Flu PRN 07/08/17 [History] PMH/Surg Hx/FS Hx/Imm Hx Previously Healthy: Yes - see hpi - Surgical History Surgical History: Yes Surgery Procedure, Year, and Place: acl right knee 2002, nasal surgery 2010. LEFT LEG surgery, L THUMB/TENDON SURGERY,. R hand surgery - Family History Known Family History: Positive: Hypertension, Diabetes - Social History Alcohol Use: Rare Alcohol Amount: 1 Q 6 MONTHS Substance Use Type: None Smoking Status (MU): Former Smoker Type: Cigars Amount Used/How Often: 2 CIGARS A DAY Length of Time of Smoking/Using Tobacco: 25 YEARS AGO Have You Smoked in the Last Year: No When Did the Patient Quit Smoking/Using Tobacco: 20 YRS AGO - Immunization History Most Recent Influenza Vaccination: APR 2017 Most Recent Tetanus Shot: Friday July 03, 2015 Review of Systems Constitutional: Fatigue Skin: Negative Eyes: Other - pressure forehead. no vis issues reported. ENT: Nasal Discharge, Sinus Congestion, Sinus Pain/Tenderness Respiratory: Cough Cardiovascular: Negative Gastrointestinal: Negative Genitourinary: Negative Motor: Negative Neurovascular: Negative Musculoskeletal: Negative Neurological: Negative, Headache - see hpi Psychological: Negative Is Patient Immunocompromised?: No All Other Systems Reviewed And Are Negative: Yes Physical Exam Triage Information Reviewed: Yes Appearance: Well-Nourished - sitting up. Vital Signs: Initial Vital Signs Temp 98 F 07/08/17 12:10 Pulse 64 07/08/17 12:10 Resp 16 07/08/17 12:10 BP 133/83 07/08/17 12:10 Pulse Ox 99 07/08/17 12:10 Vital Signs Reviewed: Yes Eye Exam: Normal - grossly normal ENT: Positive: Pharyngeal erythema - mild post erythema, no sores., Nasal congestion, Nasal drainage, TM dull - tm's dull au, Other - + frontal sinus tenderness. No rash. Facial expressions grossly symmetric. Neck exam: Normal Neck: Positive: Supple, Nontender, No Lymphadenopathy Respiratory Exam: Normal Respiratory: Positive: Chest non-tender, Lungs clear, Normal breath sounds, No respiratory distress, No accessory muscle use Cardiovascular Exam: Normal Cardiovascular: Positive: RRR, No Murmur, Pulses Normal, Brisk Capillary Refill Abdominal Exam: Normal Musculoskeletal Exam: Normal Neurological Exam: Normal - nonfocal to gross exam Psychological Exam: Normal - conversing easily and appropriately Skin Exam: Normal - no visible or reported rash Course/Dx - Course Course Of Treatment: no new problems in CCC. Questions as posed answered to the best of my ability. - Differential Dx - Multi-Symptom Provider Diagnoses: sinusitis. uri Discharge - Discharge Plan Condition: Stable Disposition: HOME Prescriptions: DOXYcycline CAP(*) [DOXYcycline 100MG CAP(*)] 100 mg PO BID #20 cap Patient Education Materials: Sinusitis (ED) Forms: *Work Release Referrals: Ruiz Almazan MD [Primary Care Provider] -
== END 2017-07-08 12:43 | disposition home or self-care (01) ==
LOC: UCCORT 10:19
DX: J32.9 Chronic sinusitis, unspecified (principal); J06.9 Acute upper respiratory infection, unspecified; Z87.891 Personal history of nicotine dependence
CPT/HCPCS: 99212; G0463

== ENCOUNTER 2017-08-22 09:19 | Emergency (ER) | payer OTHER ==
[2017-08-22 12:18] VITALS: BP 131/71
--- NOTE | 2017-08-22 12:47 | UC ---
Lower Extremity/Ankle HPI - HPI Summary HPI Summary: Pt c/o gradual onset of pain in ball of left foot that worsens with certain position or weight bearing. 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 Denies injury/trauma - History of Current Complaint Chief Complaint: UCLowerExtremity Stated Complaint: LFT FOOT PAIN Time Seen by Provider: 08/22/17 12:32 Hx Obtained From: Patient Onset/Duration: Gradual Onset, Lasting Days, Still Present Severity Initially: Mild Severity Currently: Mild Pain Intensity: 0 Aggravating Factor(s): Standing Alleviating Factor(s): Rest Able to Bear Weight: Yes - Risk Factors Gout Risk Factors: Age Over 40, Male DVT Risk Factors: Negative Septic Arthritis Risk Factor: Negative - Allergies/Home Medications Allergies/Adverse Reactions: Allergies Allergy/AdvReac Type Severity Reaction Status Date / Time MS Atorvastatin Allergy Intermediate Muscle Ache Verified 08/22/17 12:18 [From Lipitor] MS Niacin [From Niaspan] Allergy Intermediate Muscle Ache Verified 08/22/17 12: 18 MS Rosuvastatin Allergy BODY CRAMPS Verified 08/22/17 12:18 [From Crestor] PMH/Surg Hx/FS Hx/Imm Hx Previously Healthy: Yes - Surgical History Surgical History: Yes Surgery Procedure, Year, and Place: acl right knee 2002, nasal surgery 2010. LEFT LEG surgery, L THUMB/TENDON SURGERY,. R hand surgery - Family History Known Family History: Positive: Hypertension, Diabetes - Social History Occupation: Employed Full-time Lives: With Family Alcohol Use: Rare Alcohol Amount: 1 Q 6 MONTHS Substance Use Type: None Smoking Status (MU): Former Smoker Type: Cigars Amount Used/How Often: 2 CIGARS A DAY Length of Time of Smoking/Using Tobacco: 25 YEARS AGO Have You Smoked in the Last Year: No When Did the Patient Quit Smoking/Using Tobacco: 20 YRS AGO - Immunization History Most Recent Influenza Vaccination: APR 2017 Most Recent Tetanus Shot: Friday July 03, 2015 Review of Systems Constitutional: Negative Skin: Negative Eyes: Negative ENT: Negative Respiratory: Negative Cardiovascular: Negative Gastrointestinal: Negative Genitourinary: Negative Motor: Other - tenderness ball of left foot just proximal of toes 3 and 4 Neurovascular: Negative Musculoskeletal: Arthralgia, Myalgia Neurological: Negative Psychological: Negative Is Patient Immunocompromised?: No All Other Systems Reviewed And Are Negative: Yes Physical Exam Triage Information Reviewed: Yes Appearance: Well-Appearing Vital Signs: Initial Vital Signs Temp 98.3 F 08/22/17 12:13 Pulse 55 08/22/17 12:13 Resp 18 08/22/17 12:13 BP 131/71 08/22/17 12:13 Pulse Ox 99 08/22/17 12:13 Vital Signs Reviewed: Yes Eye Exam: Normal ENT Exam: Normal Neck exam: Normal Respiratory Exam: Normal Musculoskeletal Exam: Other Musculoskeletal: Positive: Other: - c/o mild tenderness with palpation to ball of left foot just proximal of toes 3 and 4 Neurological Exam: Normal Psychological Exam: Normal Skin Exam: Normal Lower Extremity Course/Dx - Differential Dx/Diagnosis Differential Diagnosis/HQI/PQRI: Bursitis, Tenosynovitis Provider Diagnoses: tenosynovitis Discharge - Discharge Plan Condition: Stable Disposition: HOME Patient Education Materials: Tenosynovitis (ED), Arthralgia (ED) Referrals: Ruiz Almazan MD [Primary Care Provider] - Sylvia Manzano MD [Medical Doctor] - Additional Instructions: Please follow up with your orthopedic provider as soon as possible.
== END 2017-08-22 12:53 | disposition home or self-care (01) ==
LOC: UCCORT 09:19
DX: M65.9 Synovitis and tenosynovitis, unspecified (principal); Z87.891 Personal history of nicotine dependence
CPT/HCPCS: 99211; G0463

== ENCOUNTER 2018-05-04 16:03 | Emergency (ER) | payer OTHER ==
[2018-05-04 17:03] VITALS: BP 118/76
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
--- NOTE | 2018-05-04 17:49 | RAD ---
Indication: Left ankle injury. 3 views of left ankle demonstrates no definite fracture although there are degenerative changes of the tibial talar joint. No fracture is noted. 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
--- NOTE | 2018-05-04 17:50 | RAD ---
Indication: Left leg injury. 2 views of the left lower extremity demonstrates healing fracture midshaft of the tibia and proximal fibula. No recent fracture is identified. IMPRESSION: Healing fracture midshaft of the tibia and proximal fibula.
--- NOTE | 2018-05-04 17:50 | RAD ---
Indication: Left foot injury and pain. 3 views of left foot demonstrates no definite fracture or dislocation. No other bone or joint abnormality is identified. Accessory ossicle is noted adjacent to the navicular. There may be degenerative changes between the talonavicular joint. IMPRESSION: No fracture of the left foot is noted. Accessory ossicle adjacent to the tarsal navicular. Degenerative changes of the talonavicular joint.
== END 2018-05-04 18:50 | disposition home or self-care (01) ==
LOC: UCCORT 16:03
DX: S82.202G Unspecified fracture of shaft of left tibia, subsequent encounter for closed fracture with delayed healing (principal); M25.572 Pain in left ankle and joints of left foot; Z88.8 Allergy status to other drugs, medicaments and biological substances; E11.9 Type 2 diabetes mellitus without complications; I10 Essential (primary) hypertension; Z87.891 Personal history of nicotine dependence
CPT/HCPCS: 99212; G0463

== ENCOUNTER 2018-09-15 17:22 | Emergency (ER) | payer OTHER ==
[2018-09-15 20:07] VITALS: BP 123/76
--- NOTE | 2018-09-15 20:30 | UC ---
General HPI - HPI Summary HPI Summary: pain R elbow for a day last week. past couple of days, having recurrent pain. occurs with flexion and rotation of forearm. no injury or swelling. no numbness or tingling. R hand dominant and does a lot of repetition type work. - History of Current Complaint Chief Complaint: UCUpperExtremity Stated Complaint: RIGHT ARM, ELBOW PAIN Time Seen by Provider: 09/15/18 20:23 Hx Obtained From: Patient Pain Intensity: 7 Associated Signs & Symptoms: Negative: Edema, Fever, Weakness - Allergy/Home Medications Allergies/Adverse Reactions: Allergies Allergy/AdvReac Type Severity Reaction Status Date / Time atorvastatin [From Lipitor] Allergy Muscle Ache Verified 09/15/18 20:07 niacin Allergy Muscle Ache Verified 09/15/18 20:07 rosuvastatin [From Crestor] Allergy Muscle Ache Verified 09/15/18 20:07 Home Medications: Home Medications Levothyroxine 0.15 Mg 1 tab DAILY 09/15/18 [History Confirmed 09/15/18] metFORMIN* [Glucophage 500 MG TAB *] 500 mg PO BID 09/15/18 [History Confirmed 09/15/18] PMH/Surg Hx/FS Hx/Imm Hx Endocrine History: Thyroid Disease, Dyslipidemia Cardiovascular History: Hypertension Psychological History: Depression - Surgical History Surgical History: Yes Surgery Procedure, Year, and Place: acl right knee 2002, nasal surgery 2010. LEFT LEG surgery, L THUMB/TENDON SURGERY,. R hand surgery - Family History Known Family History: Positive: Hypertension, Diabetes - Social History Alcohol Use: Rare Alcohol Amount: 1 Q 6 MONTHS Substance Use Type: None Smoking Status (MU): Former Smoker Type: Cigars Amount Used/How Often: 2 CIGARS A DAY Length of Time of Smoking/Using Tobacco: 25 YEARS AGO Have You Smoked in the Last Year: No When Did the Patient Quit Smoking/Using Tobacco: 20 YRS AGO - Immunization History Most Recent Influenza Vaccination: APR 2017 Most Recent Tetanus Shot: Friday July 03, 2015 Review of Systems All Other Systems Reviewed And Are Negative: Yes Constitutional: Positive: Negative Skin: Positive: Negative Eyes: Positive: Negative ENT: Positive: Negative Respiratory: Positive: Negative Cardiovascular: Positive: Negative Gastrointestinal: Positive: Negative Genitourinary: Positive: Negative Motor: Positive: Negative Neurovascular: Positive: Negative Neurological: Positive: Negative Psychological: Positive: Negative Physical Exam Triage Information Reviewed: Yes Appearance: Well-Appearing Vital Signs: Initial Vital Signs Temp 97.8 F 09/15/18 20:03 Pulse 59 09/15/18 20:03 Resp 16 09/15/18 20:03 BP 123/76 09/15/18 20:03 Pulse Ox 98 09/15/18 20:03 Vital Signs Reviewed: Yes Eyes: Positive: Conjunctiva Clear ENT: Positive: Normal ENT inspection Neck: Positive: Supple Respiratory: Positive: Lungs clear Cardiovascular: Positive: RRR Abdomen Description: Positive: Nontender Bowel Sounds: Positive: Present Musculoskeletal: Positive: Other: - RUE=no gross deformity, swelling or discoloration. tender to palpation over anterior elbow/tendons. flexion and rotation of forearm against resistance reproduces and worsens pain. RUE has full s/v/m function. Neurological: Positive: Alert Psychological: Positive: Age Appropriate Behavior Skin Exam: Normal Skin: Negative: Rashes Course/Dx - Diagnoses Provider Diagnosis: Tendinitis of right elbow Discharge - Sign-Out/Discharge Documenting (check all that apply): Patient Departure All imaging exams completed and their final reports reviewed: No Studies - Discharge Plan Condition: Stable Disposition: HOME Prescriptions: Naproxen [Naprosyn 500 mg tab] 500 mg PO BID 5 Days #10 tablet Patient Education Materials: Tendinitis (ED) Forms: *Work Release Referrals: Ruiz Almazan MD [Primary Care Provider] - 7 Days Additional Instructions: use a forearm strap for tendinitis during day, remove at bedtime - Billing Disposition and Condition Condition: STABLE Disposition: Home - Attestation Statements Provider Attestation: Per institutional requirements, I have reviewed the chart, however, I was not consulted specifically or made aware of this patient by the midlevel provider. I did not personally evaluate, interact with , or disposition this patient.
== END 2018-09-15 20:41 | disposition home or self-care (01) ==
LOC: UCCORT 17:22
DX: M77.9 Enthesopathy, unspecified (principal); E07.9 Disorder of thyroid, unspecified; I10 Essential (primary) hypertension; Z79.899 Other long term (current) drug therapy; Z88.8 Allergy status to other drugs, medicaments and biological substances; Z87.891 Personal history of nicotine dependence
CPT/HCPCS: 99212; G0463

== ENCOUNTER 2018-10-01 10:47 | Emergency (ER) | payer OTHER ==
[2018-10-01 11:03] VITALS: BP 122/71
--- NOTE | 2018-10-01 11:29 | UC ---
Respiratory Complaint HPI - HPI Summary HPI Summary: 58 yo male with 5 day hx sinus pressure and pain/fromntal headache, post nasal drip and cough\ no f/c no n/v/d no cp or sob - History of Current Complaint Chief Complaint: UCRespiratory Stated Complaint: DIXON,COUGH Time Seen by Provider: 10/01/18 11:23 Hx Obtained From: Patient Onset/Duration: Gradual Onset Severity Initially: Mild Severity Currently: Moderate Pain Intensity: 3 Pain Scale Used: 0-10 Numeric Character: Cough: Nonproductive Aggravating Factors: Nothing Alleviating Factors: Nothing Associated Signs And Symptoms: Positive: Nasal Congestion, Hoarseness, Sinus Discomfort - Allergies/Home Medications Allergies/Adverse Reactions: Allergies Allergy/AdvReac Type Severity Reaction Status Date / Time atorvastatin [From Lipitor] Allergy Muscle Ache Verified 09/15/18 20:07 niacin Allergy Muscle Ache Verified 09/15/18 20:07 rosuvastatin [From Crestor] Allergy Muscle Ache Verified 09/15/18 20:07 Home Medications: Home Medications Levothyroxine TAB* [Synthroid TAB*] 150 mcg PO DAILY 10/01/18 [History Confirmed 10/01/18] metFORMIN* [Glucophage 500 MG TAB *] 1,000 mg PO QAM 10/01/18 [History Confirmed 10/01/18] PMH/Surg Hx/FS Hx/Imm Hx Previously Healthy: Yes Endocrine History: Diabetes Cardiovascular History: Cardiac Disease - Surgical History Surgical History: Yes Surgery Procedure, Year, and Place: acl right knee 2002, nasal surgery 2010. LEFT LEG surgery, L THUMB/TENDON SURGERY,. R hand surgery - Family History Known Family History: Positive: Cardiac Disease, Hypertension, Diabetes - Social History Alcohol Use: Rare Alcohol Amount: 1 Q 6 MONTHS Substance Use Type: None Smoking Status (MU): Former Smoker Type: Cigars Amount Used/How Often: 2 CIGARS A DAY Length of Time of Smoking/Using Tobacco: 2 Cigars Daily x 5 Years Have You Smoked in the Last Year: No When Did the Patient Quit Smoking/Using Tobacco: ~1988 - Immunization History Most Recent Influenza Vaccination: APR 2017 Most Recent Tetanus Shot: 11/07/14 Review of Systems All Other Systems Reviewed And Are Negative: Yes Constitutional: Positive: Negative Skin: Positive: Negative Eyes: Positive: Negative ENT: Positive: Ear Ache, Nasal Discharge, Sinus Pain/Tenderness Respiratory: Positive: Cough Cardiovascular: Positive: Negative Gastrointestinal: Positive: Negative Genitourinary: Positive: Negative Motor: Positive: Negative Neurovascular: Positive: Negative Musculoskeletal: Positive: Negative Neurological: Positive: Headache Psychological: Positive: Negative Physical Exam Triage Information Reviewed: Yes Appearance: Well-Appearing, No Pain Distress, Well-Nourished Vital Signs: Initial Vital Signs Temp 98 F 10/01/18 10:57 Pulse 78 10/01/18 10:57 Resp 17 10/01/18 10:57 BP 122/71 10/01/18 10:57 Pulse Ox 97 10/01/18 10:57 Vital Signs Reviewed: Yes Eyes: Positive: Conjunctiva Clear ENT: Positive: Hearing grossly normal, Nasal congestion, Dental tenderness, Sinus tenderness, Uvula midline. Negative: Nasal drainage, TMs normal - cerumen right , left normal, Tonsillar swelling, Tonsillar exudate, Trismus, Muffled voice Dental: Positive: Other: - upper dentures Neck: Positive: Supple, Nontender Respiratory: Positive: Lungs clear, Normal breath sounds, No respiratory distress, No accessory muscle use Cardiovascular: Positive: RRR, No Murmur Musculoskeletal: Positive: ROM Intact, No Edema Neurological: Positive: Alert Psychological Exam: Normal Skin Exam: Normal Respiratory Course/Dx - Differential Dx/Diagnosis Provider Diagnosis: Acute sinusitis Discharge - Sign-Out/Discharge Documenting (check all that apply): Patient Departure All imaging exams completed and their final reports reviewed: No Studies - Discharge Plan Condition: Stable Disposition: HOME Prescriptions: Amoxicillin PO (*) [Amoxicillin 875 MG (*)] 875 mg PO BID #14 tab Patient Education Materials: Sinusitis (ED) Forms: *Work Release Referrals: Ruiz Almazan MD [Primary Care Provider] - 5 Days (if not better) - Billing Disposition and Condition Condition: STABLE Disposition: Home
== END 2018-10-01 11:40 | disposition home or self-care (01) ==
LOC: UCCORT 10:47
DX: J01.90 Acute sinusitis, unspecified (principal); E11.9 Type 2 diabetes mellitus without complications; Z79.84 Long term (current) use of oral hypoglycemic drugs; Z88.8 Allergy status to other drugs, medicaments and biological substances; Z87.891 Personal history of nicotine dependence
CPT/HCPCS: 99212; G0463

== ENCOUNTER 2018-12-01 16:21 | Emergency (ER) | payer OTHER ==
[2018-12-01 16:52] VITALS: BP 122/87
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
[2018-12-01] MEDS ORDERED: Acetaminophen TAB* 325 MG PO ONE (17:37)
== END 2018-12-01 18:01 | disposition home or self-care (01) ==
LOC: UCCORT 16:21
DX: S20.229A Contusion of unspecified back wall of thorax, initial encounter (principal); S29.011A Strain of muscle and tendon of front wall of thorax, initial encounter; V53.5XXA Driver of pick-up truck or van injured in collision with car, pick-up truck or van in traffic accident, initial encounter; Y92.414 Local residential or business street as the place of occurrence of the external cause; E11.9 Type 2 diabetes mellitus without complications; Z88.8 Allergy status to other drugs, medicaments and biological substances; Z87.891 Personal history of nicotine dependence
CPT/HCPCS: 81003; 99212; A9270-GY; G0463